=== PATIENT | male | born 1975 | race Native Hawaiian/Other Pacific Islander ===

== ENCOUNTER 2020-03-19 12:03 | Emergency (ER) | payer BC ==
[~2020-03-19] VITALS: Ht 175.3 cm; Wt 112.5 kg
[2020-03-19 12:03] VITALS: TEMP 97.5
[~2020-03-19 12:03] MED LIST: FLUO20CA6 PO; FLUT0.05 NAS; IMITREX100 MG PO; LORA10TA3 PO; PEPCID40 MG PO; TOPAMAX25 MG PO; VIIBRYD40 MG PO; Z-PAK PO; ZITHROMAX500 MG PO
[2020-03-19 15:00] VITALS: BP 149/83
== END 2020-03-19 15:10 | disposition home or self-care (01) ==
LOC: ED 12:06
PROC: 0HQFXZZ Repair Right Hand Skin, External Approach (ICD-10-PCS; principal; 2020-03-19)
PROC: 2W3GX1Z Immobilization of Right Thumb using Splint (ICD-10-PCS; 2020-03-19)
DX: S62.524A Nondisplaced fracture of distal phalanx of right thumb, initial encounter for closed fracture (principal); S61.011A Laceration without foreign body of right thumb without damage to nail, initial encounter; S60.410A Abrasion of right index finger, initial encounter; W29.8XXA Contact with other powered hand tools and household machinery, initial encounter; Y92.89 Other specified places as the place of occurrence of the external cause
CPT/HCPCS: 90471; 90715; 96372; 99283; J1885

== ENCOUNTER 2020-04-01 14:33 | Outpatient (CLI) | payer BC | END 2020-04-01 19:27 | disposition home or self-care (01) | LOC: LABW 14:33 | PROVIDERS: ATTEND Nurse Practitioner Family | DX: R10.30 Lower abdominal pain, unspecified (principal); R19.7 Diarrhea, unspecified | CPT/HCPCS: 82272; 82705; 83630; 87015; 87045; 87324; 87449; 87899 ==

== ENCOUNTER 2020-05-10 07:41 | Outpatient (CLI) | payer BC | END 2020-05-10 20:51 | disposition home or self-care (01) | LOC: US 07:41 | PROVIDERS: ATTEND Nurse Practitioner Family | DX: R19.8 Other specified symptoms and signs involving the digestive system and abdomen (principal); R11.2 Nausea with vomiting, unspecified; R10.9 Unspecified abdominal pain | CPT/HCPCS: A9541 ==

== ENCOUNTER 2020-08-05 10:47 | Outpatient (CLI) | payer BC | END 2020-08-05 20:59 | disposition home or self-care (01) | LOC: RAD 10:47 | PROVIDERS: ATTEND Nurse Practitioner Family | DX: M54.5 Low back pain (principal); M54.6 Pain in thoracic spine ==

== ENCOUNTER 2021-05-27 12:43 | Outpatient (CLI) | payer BC | END 2021-05-27 19:04 | disposition home or self-care (01) | LOC: RESP 12:43 | PROVIDERS: ATTEND Specialist | DX: I10 Essential (primary) hypertension (principal) ==

== ENCOUNTER 2022-05-14 08:31 | Outpatient (CLI) | payer BC | END 2022-05-14 19:16 | disposition home or self-care (01) | LOC: US 08:31 | PROVIDERS: ATTEND Nurse Practitioner Family | DX: I10 Essential (primary) hypertension (principal); M79.604 Pain in right leg; E87.8 Other disorders of electrolyte and fluid balance, not elsewhere classified; R60.0 Localized edema; G57.90 Unspecified mononeuropathy of unspecified lower limb; Z13.29 Encounter for screening for other suspected endocrine disorder; E78.49 Other hyperlipidemia ==

== ENCOUNTER 2022-05-18 09:03 | Outpatient (CLI) | payer BC | END 2022-05-18 19:44 | disposition home or self-care (01) | LOC: US 09:03 | PROVIDERS: ATTEND Nurse Practitioner Family | DX: I10 Essential (primary) hypertension (principal); M79.604 Pain in right leg; E87.8 Other disorders of electrolyte and fluid balance, not elsewhere classified; R60.0 Localized edema; G57.90 Unspecified mononeuropathy of unspecified lower limb; Z13.29 Encounter for screening for other suspected endocrine disorder; E78.49 Other hyperlipidemia ==

== ENCOUNTER → 2022-06-11 | Outpatient (CLI) | payer BC | LOC: RAD 09:12 | PROVIDERS: ATTEND Nurse Practitioner Family | DX: M25.551 Pain in right hip (principal) ==

== ENCOUNTER 2022-12-22 10:26 | Outpatient (CLI) | payer BC | END 2022-12-22 18:54 | disposition home or self-care (01) | LOC: RAD 10:26 | PROVIDERS: ATTEND Nurse Practitioner Family | DX: M25.551 Pain in right hip (principal); E04.1 Nontoxic single thyroid nodule ==